=== PATIENT | male | born 1980 | race African-American/Black ===

== ENCOUNTER 2022-01-15 20:55 | Emergency (ER) | payer BC ==
[2022-01-15 21:08] VITALS: BMI 23.6
[2022-01-15] MEDS ORDERED: SODIUM CHLORIDE 0.9% 500 ML INFUS.BAG IV ONE (21:49)
[2022-01-15] MEDS ORDERED: ONDANSETRON 4 MG/2 ML VIAL IVPUSH ONE (21:50)
[2022-01-15] MEDS ORDERED: PANTOPRAZOLE SODIUM 40 MG VIAL IVPUSH ONE (21:50)
[2022-01-15] MEDS ORDERED: ACETAMINOPHEN 1000 MG/100 ML BAG IVPB ONE (21:50)
[2022-01-15] MEDS ORDERED: MAG HYDROX/AL HYDROX/SIMETH 30 ML UNIT-DOSE CUP PO ONE (21:50)
[2022-01-15] MEDS ORDERED: ACETAMINOPHEN INJECTION 100 ML IVPB ONE (23:28)
[2022-01-15] MEDS ORDERED: ONDANSETRON 4 MG/2 ML VIAL ONE (23:29)
[2022-01-15] MEDS ORDERED: MAG HYDROX/AL HYDROX/SIMETH 30 ML UNIT-DOSE CUP ONE (23:29)
[2022-01-15] MEDS ORDERED: FAMOTIDINE 20 MG/50 ML IVPB 20 MG/50 ML MG IVPB ONE ×2 (23:30→23:36)
[2022-01-16 00:01] LABS: BASO % 0.4 % (0-2.0); HEMATOCRIT 47.7 % (35.4-49); HEMOGLOBIN 16.4 GM/dL (11.7-16.9); LYMPH % 11.6 % (8-40); MCH 32.5 pg (25.7-33.7); MCHC 34.4 g/dl (32.0-35.9); MEAN CELL VOLUME 94.5 fl (80-96); MEAN PLT VOLUME 8.8 fl (7.5-11.1); MONO % 3.1 % (3.8-10.2); NEUT % 84.9 % (42.8-82.8); PLATELET COUNT 199 10^3/uL (134-434); RBC 5.05 M/mm3 (4.00-5.60); RDW 13.6 % (11.9-15.9); WHITE BLOOD COUNT 8.5 K/mm3 (4.0-10.0)
[2022-01-16 00:21] LABS: BLOOD UREA NITROGEN 9.6 mg/dL (7-18)
[2022-01-16 00:25] LABS: BILIRUBIN,TOTAL 2.2 mg/dL (0.2-1)
[2022-01-16 00:26] LABS: TOT PROT 9.2 g/dl (6.4-8.2)
[2022-01-16 03:48] VITALS: BP 160/88; PULSE 90; TEMP 98.6
== END 2022-01-16 03:47 | disposition home or self-care (01) ==
LOC: JER 20:55
PROC: 3E0333Z Introduction of Anti-inflammatory into Peripheral Vein, Percutaneous Approach (ICD-10-PCS; principal; 2022-01-15)
PROC: 3E033GC Introduction of Other Therapeutic Substance into Peripheral Vein, Percutaneous Approach (ICD-10-PCS; 2022-01-15)
PROC: 3E033GC Introduction of Other Therapeutic Substance into Peripheral Vein, Percutaneous Approach (ICD-10-PCS; 2022-01-15)
DX: K52.9 Noninfective gastroenteritis and colitis, unspecified (principal)
CPT/HCPCS: 0241U-QW; 36415; 71045-TC-FY; 74177-TC; 80053; 83690; 84484; 85025; 99285-25; Q9967

== ENCOUNTER 2022-03-03 04:30 | Day surgery (SDC) | payer BC ==
[2022-02-26 12:57] VITALS: BMI 23.8
[2022-03-03 13:14] VITALS: TEMP 98
[2022-03-03 13:35] VITALS: BP 149/95; PULSE 61; RESP 16
== END 2022-03-03 13:40 | disposition home or self-care (01) ==
LOC: JASU-ENDO 04:30
PROVIDERS: ATTEND Internal Medicine
PROC: 0DBN8ZX Excision of Sigmoid Colon, Via Natural or Artificial Opening Endoscopic, Diagnostic (ICD-10-PCS; 2022-03-03)
PROC: 0DBM8ZX Excision of Descending Colon, Via Natural or Artificial Opening Endoscopic, Diagnostic (ICD-10-PCS; principal; 2022-03-03 11:30)
DX: K92.1 Melena (principal); R19.4 Change in bowel habit; K57.30 Diverticulosis of large intestine without perforation or abscess without bleeding; K64.4 Residual hemorrhoidal skin tags
CPT/HCPCS: 88305-TC

== ENCOUNTER 2022-04-29 17:36 | Emergency (ER) | payer BC ==
[2022-04-29 18:22] VITALS: BP 180/139; PULSE 99; RESP 17; TEMP 98; BMI 20.3
[2022-04-29] MEDS ORDERED: FAMOTIDINE 20 MG/50 ML IVPB 20 MG/50 ML MG IVPB ONE (18:49)
[2022-04-29] MEDS ORDERED: SODIUM CHLORIDE 0.9% 500 ML INFUS.BAG IV ONE (18:49)
[2022-04-29] MEDS ORDERED: MAG HYDROX/AL HYDROX/SIMETH 30 ML UNIT-DOSE CUP PO ONE (18:50)
[2022-04-29] MEDS ORDERED: ONDANSETRON 4 MG/2 ML VIAL IVPUSH ONE (18:50)
[2022-04-29] MEDS ORDERED: PANTOPRAZOLE SODIUM 40 MG VIAL IVPUSH ONE (18:50)
[2022-04-29] MEDS ORDERED: MAG HYDROX/AL HYDROX/SIMETH 30 ML UNIT-DOSE CUP ONE (19:20)
[2022-04-29] MEDS ORDERED: FAMOTIDINE 10 MG/ML VIAL IVPB ONE (19:20)
[2022-04-29] MEDS ORDERED: ONDANSETRON 4 MG/2 ML VIAL ONE (19:20)
[2022-04-29] MEDS ORDERED: PANTOPRAZOLE SODIUM 40 MG VIAL ONE (19:20)
[2022-04-29 20:04] LABS: BASO % 0.3 % (0-2.0); HEMATOCRIT 49.5 % (35.4-49); HEMOGLOBIN 16.8 GM/dL (11.7-16.9); LYMPH % 21.5 % (8-40); MCH 32.7 pg (25.7-33.7); MCHC 33.9 g/dl (32.0-35.9); MEAN CELL VOLUME 96.4 fl (80-96); MEAN PLT VOLUME 9.2 fl (7.5-11.1); MONO % 7.4 % (3.8-10.2); NEUT % 70.8 % (42.8-82.8); PLATELET COUNT 183 10^3/uL (134-434); RBC 5.13 M/mm3 (4.00-5.60); RDW 13.4 % (11.9-15.9); WHITE BLOOD COUNT 12.1 K/mm3 (4.0-10.0)
[2022-04-29 20:21] LABS: BLOOD UREA NITROGEN 17.4 mg/dL (7-18); CALCIUM 9.7 mg/dL (8.5-10.1)
[2022-04-29 20:22] LABS: ALBUMIN 4.6 g/dl (3.4-5.0)
[2022-04-29 20:26] LABS: BILIRUBIN,TOTAL 4.4 mg/dL (0.2-1); TOT PROT 8.3 g/dl (6.4-8.2)
== END 2022-04-29 21:24 | disposition home or self-care (01) ==
LOC: JER 17:36
PROC: 3E033GC Introduction of Other Therapeutic Substance into Peripheral Vein, Percutaneous Approach (ICD-10-PCS; principal; 2022-04-29)
DX: R10.84 Generalized abdominal pain (principal)
CPT/HCPCS: 36415; 80053; 83690; 85025; 99284-25

== ENCOUNTER 2023-07-03 12:35 | Emergency (ER) | payer BC, OTHER ==
[2023-07-03 12:42] VITALS: BMI 23.6
[2023-07-03] MEDS ORDERED: SODIUM CHLORIDE 1,000 ML IV STA (13:11)
[2023-07-03] MEDS ORDERED: ONDANSETRON 4 MG/2 ML VIAL IVPUSH ONE (13:11)
[2023-07-03] MEDS ORDERED: ACETAMINOPHEN 1000 MG/100 ML BAG IVPB ONE (13:11)
[2023-07-03] MEDS ORDERED: FAMOTIDINE 20 MG/50 ML IVPB 20 MG/50 ML MG IVPB ONE ×2 (13:11→13:57)
[2023-07-03] MEDS ORDERED: ACETAMINOPHEN INJECTION 100 ML IVPB ONE (13:56)
[2023-07-03] MEDS ORDERED: ONDANSETRON 4 MG/2 ML VIAL ONE (13:56)
[2023-07-03 14:00] LABS: BASO % 0.4 % (0-2.0); EOS % 0.3 % (0-4.5); HEMATOCRIT 49.1 % (35.4-49); HEMOGLOBIN 16.9 GM/dL (11.7-16.9); LYMPH % 17.5 % (8-40); MCH 33.3 pg (25.7-33.7); MCHC 34.4 g/dl (32.0-35.9); MEAN CELL VOLUME 96.8 fl (80-96); MEAN PLT VOLUME 8.9 fl (7.5-11.1); NEUT % 74.8 % (42.8-82.8); PLATELET COUNT 207 10^3/uL (134-434); RBC 5.07 M/mm3 (4.00-5.60); RDW 13.4 % (11.9-15.9); WHITE BLOOD COUNT 14.5 K/mm3 (4.0-10.0)
[2023-07-03 14:06] LABS: INR 1.2 (0.83-1.09); PROTHROMBIN TIME (PATIENT) 13.9 SEC (9.7-13.0)
[2023-07-03 14:08] LABS: ACTIVATED PTT 33.2 SECONDS (25.2-36.5)
[2023-07-03 14:27] LABS: POTASSIUM 3.6 mmol/L (3.5-5.1)
[2023-07-03 14:29] LABS: CALCIUM 9.9 mg/dL (8.5-10.1)
[2023-07-03 14:30] LABS: ALBUMIN 4.6 g/dl (3.4-5.0); BLOOD UREA NITROGEN 11.5 mg/dL (7-18); MAGNESIUM 2.6 mg/dL (1.8-2.4)
[2023-07-03 14:33] LABS: CREATININE 1.1 mg/dL (0.55-1.3); PHOSPHOROUS 2.7 mg/dL (2.5-4.9)
[2023-07-03 14:34] LABS: BILIRUBIN,TOTAL 2.1 mg/dL (0.2-1)
[2023-07-03 15:30] VITALS: RESP 18; TEMP 98.7
[2023-07-03] MEDS ORDERED: MAG HYDROX/AL HYDROX/SIMETH 30 ML UNIT-DOSE CUP PO ONE (15:41)
[2023-07-03] MEDS ORDERED: LOSARTAN 50MG/HCTZ 12.5MG 1 TAB PO ONE (15:42)
[2023-07-03] MEDS ORDERED: MAG HYDROX/AL HYDROX/SIMETH 30 ML UNIT-DOSE CUP ONE (16:36)
[2023-07-03] MEDS ORDERED: cloNIDine HCL 0.1 MG TABLET PO ONE (18:40)
[2023-07-03 18:43] VITALS: PULSE 79
[2023-07-03] MEDS ORDERED: cloNIDine HCL 0.1 MG TABLET ONE (18:43)
[2023-07-03 19:58] VITALS: BP 139/91
== END 2023-07-03 20:23 | disposition home or self-care (01) ==
LOC: JER 12:35
PROC: 3E033GC Introduction of Other Therapeutic Substance into Peripheral Vein, Percutaneous Approach (ICD-10-PCS; principal; 2023-07-03)
PROC: 3E033NZ Introduction of Analgesics, Hypnotics, Sedatives into Peripheral Vein, Percutaneous Approach (ICD-10-PCS; 2023-07-03)
PROC: 3E033GC Introduction of Other Therapeutic Substance into Peripheral Vein, Percutaneous Approach (ICD-10-PCS; 2023-07-03)
PROC: 3E0337Z Introduction of Electrolytic and Water Balance Substance into Peripheral Vein, Percutaneous Approach (ICD-10-PCS; 2023-07-03)
DX: R11.2 Nausea with vomiting, unspecified (principal); R19.7 Diarrhea, unspecified; R10.9 Unspecified abdominal pain; I10 Essential (primary) hypertension; R68.83 Chills (without fever); Z20.822 Contact with and (suspected) exposure to COVID-19
CPT/HCPCS: 0241U-QW; 36415; 76705-TC; 80053; 83690; 83735; 84100; 84484; 85025; 85610; 85730; 93005; 93010; 99285-25

== ENCOUNTER 2023-08-25 07:48 | Emergency (ER) | payer OTHER ==
[2023-08-25 08:06] VITALS: BMI 22.7
[2023-08-25] MEDS ORDERED: ONDANSETRON 4 MG/2 ML VIAL ONE ×2 (08:18→10:56)
[2023-08-25] MEDS ORDERED: ACETAMINOPHEN INJECTION 100 ML IVPB ONE (08:18)
[2023-08-25] MEDS: ACETAMINOPHEN 1000 MG/100 ML BAG IVPB ONE (08:34)
[2023-08-25] MEDS ORDERED: MAG HYDROX/AL HYDROX/SIMETH 30 ML UNIT-DOSE CUP ONE (08:34)
[2023-08-25] MEDS ORDERED: FAMOTIDINE 20 MG/50 ML IVPB 20 MG/50 ML MG IVPB ONE (08:34)
[2023-08-25] MEDS: ONDANSETRON 4 MG/2 ML VIAL IVPUSH ONE ×2 (08:34→10:59)
[2023-08-25] MEDS: LACTATED RINGERS SOLUTION 1000 ML INFUS.BAG IV ONE (08:48)
[2023-08-25] MEDS: FAMOTIDINE 20 MG/50 ML IVPB 20 MG/50 ML MG IVPB ONE (08:48)
[2023-08-25] MEDS: MAG HYDROX/AL HYDROX/SIMETH 30 ML UNIT-DOSE CUP PO ONE (08:49)
[2023-08-25 08:51] LABS: BASO % 2.1 % (0-2.0); HEMATOCRIT 43.2 % (35.4-49); HEMOGLOBIN 14.9 GM/dL (11.7-16.9); LYMPH % 8.8 % (8-40); MCH 33.5 pg (25.7-33.7); MCHC 34.5 g/dl (32.0-35.9); MEAN CELL VOLUME 96.9 fl (80-96); MEAN PLT VOLUME 9.4 fl (7.5-11.1); MONO % 2.8 % (3.8-10.2); NEUT % 86.3 % (42.8-82.8); PLATELET COUNT 202 10^3/uL (134-434); RBC 4.45 M/mm3 (4.00-5.60); RDW 14.2 % (11.9-15.9); WHITE BLOOD COUNT 10.6 K/mm3 (4.0-10.0)
[2023-08-25 08:58] LABS: INR 1.32 (0.83-1.09); PROTHROMBIN TIME (PATIENT) 15.3 SEC (9.7-13.0)
[2023-08-25 09:01] LABS: ACTIVATED PTT 31.3 SECONDS (25.2-36.5)
[2023-08-25 09:17] LABS: POTASSIUM 3.6 mmol/L (3.5-5.1)
[2023-08-25 09:19] LABS: ALBUMIN 4.8 g/dl (3.4-5.0); CALCIUM 10.1 mg/dL (8.5-10.1)
[2023-08-25 09:20] LABS: BLOOD UREA NITROGEN 7.4 mg/dL (7-18); MAGNESIUM 2.5 mg/dL (1.8-2.4)
[2023-08-25 09:24] LABS: BILIRUBIN,TOTAL 2.6 mg/dL (0.2-1); TOT PROT 8.6 g/dl (6.4-8.2)
[2023-08-25 09:28] LABS: LACTIC ACID 2.1 mmol/L (0.4-2.0)
[2023-08-25] MEDS ORDERED: LABETALOL HCL 20 MG/4 ML VIAL ONE (09:34)
[2023-08-25] MEDS: LABETALOL HCL 5 MG/1 ML (100MG/20 ML VIAL) IVPUSH ONE (09:40)
[2023-08-25] MEDS: LOSARTAN 50MG/HCTZ 12.5MG 1 TAB PO ONE (11:28)
[2023-08-25 11:54] VITALS: BP 205/124; PULSE 90; RESP 16; TEMP 98.3
[2023-08-25 12:03] LABS: BILIRUBIN,DIRECT 0.5 mg/dL (0.0-0.2)
== END 2023-08-25 12:03 | disposition home or self-care (01) ==
LOC: JER 07:48
PROC: 3E033GC Introduction of Other Therapeutic Substance into Peripheral Vein, Percutaneous Approach (ICD-10-PCS; principal; 2023-08-25)
PROC: 3E033GC Introduction of Other Therapeutic Substance into Peripheral Vein, Percutaneous Approach (ICD-10-PCS; 2023-08-25)
PROC: 3E033GC Introduction of Other Therapeutic Substance into Peripheral Vein, Percutaneous Approach (ICD-10-PCS; 2023-08-25)
PROC: 3E033NZ Introduction of Analgesics, Hypnotics, Sedatives into Peripheral Vein, Percutaneous Approach (ICD-10-PCS; 2023-08-25)
PROC: 3E033GC Introduction of Other Therapeutic Substance into Peripheral Vein, Percutaneous Approach (ICD-10-PCS; 2023-08-25)
DX: R11.2 Nausea with vomiting, unspecified (principal); R19.7 Diarrhea, unspecified; R10.84 Generalized abdominal pain; I10 Essential (primary) hypertension; Z20.822 Contact with and (suspected) exposure to COVID-19
CPT/HCPCS: 0241U-QW; 36415; 71045-TC-FY; 74177-TC; 80053; 82248; 83605; 83690; 83735; 84484; 85025; 85610; 85730; 93005; 93010; 99285-25; J0131; Q9967